=== PATIENT | female | born 2000 | race Caucasian/White ===

== ENCOUNTER 2018-05-26 21:10 | Emergency (ER) | payer OTHER ==
--- NOTE | 2018-05-26 21:35 | ER Document Report ---
ED Hand/Wrist Injury - General Chief Complaint: Finger Injury Stated Complaint: RIGHT THUMB PAIN Time Seen by Provider: 05/26/18 21:25 Mode of Arrival: Ambulatory Information source: Patient Notes: 18-year-old female presented to ED for complaint of pain to her right thumb. She states she thinks she broke it while doing martial arts. She states she landed on her thumb and someone else landed on top of her. The thumb is deformed. Is alert and oriented respirations regular and unlabored speaking in full sentences walk with a even steady gait. TRAVEL OUTSIDE OF THE [place] 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 Lives with: Parents Family History: Reviewed & Not Pertinent Patient has suicidal ideation: No Patient has homicidal ideation: No - Past Medical History Cardiac Medical History: Reports: None Pulmonary Medical History: Reports: None EENT Medical History: Reports: None Neurological Medical History: Reports: None Endocrine Medical History: Reports: None Renal/ Medical History: Reports: None Malignancy Medical History: Reports: None GI Medical History: Reports: None Musculoskeletal Medical History: Reports None Skin Medical History: Reports None Psychiatric Medical History: Reports: None Traumatic Medical History: Reports: None Infectious Medical History: Reports: None Surgical Hx: Negative - Immunizations Immunizations up to date: Yes Hx Diphtheria, Pertussis, Tetanus Vaccination: Yes Review of Systems - Review of Systems Constitutional: No symptoms reported EENT: No symptoms reported Cardiovascular: No symptoms reported Respiratory: No symptoms reported Gastrointestinal: No symptoms reported Genitourinary: No symptoms reported Female Genitourinary: No symptoms reported Musculoskeletal: Other - Broken and deformed right base of the proximal phalanx of the thumb bruised swollen Skin: No symptoms reported Hematologic/Lymphatic: No symptoms reported Neurological/Psychological: No symptoms reported -: Yes All other systems reviewed and negative Physical Exam - Vital signs Vitals: Temp Pulse Resp BP Pulse Ox 98.4 F 91 16 119/73 100 05/26/18 21:16 05/26/18 21:16 05/26/18 21:16 05/26/18 21:16 05/26/18 21:16 Interpretation: Normal - General General appearance: Appears well, Alert - HEENT Head: Normocephalic, Atraumatic Eyes: Normal Pupils: PERRL - Respiratory Respiratory status: No respiratory distress Chest status: Nontender Breath sounds: Normal Chest palpation: Normal - Cardiovascular Rhythm: Regular Heart sounds: Normal auscultation Murmur: No - Abdominal Inspection: Normal Distension: No distension Bowel sounds: Normal Tenderness: Nontender Organomegaly: No organomegaly - Back Back: Normal, Nontender - Extremities General upper extremity: Normal temperature General lower extremity: Normal inspection, Nontender, Normal color, Normal ROM , Normal temperature, Normal weight bearing. No: Rosendo's sign Hand: Tender, Deformity, Ecchymosis, Instability, No evidence of human bite, No evidence of FB, Swelling. No: Abrasion, Dislocation, Laceration, Nail injury - Neurological Neuro grossly intact: Yes Cognition: Normal Orientation: AAOx4 Ioana Coma Scale Eye Opening: Spontaneous Ioana Coma Scale Verbal: Oriented Ioana Coma Scale Motor: Obeys Commands Ioana Coma Scale Total: 15 Speech: Normal Motor strength normal: LUE, RUE, LLE, RLE Sensory: Normal - Psychological Associated symptoms: Normal affect, Normal mood - Skin Skin Temperature: Warm Skin Moisture: Dry Skin Color: Normal Course - Re-evaluation Re-evalutation: 05/26/18 22:34 Chest x-ray with Dr. Jimenez and Dr. Martel. Dr. Martel stated that the patient should come to [facility] for surgery tomorrow around noon. Patient was treated with Percocet then a splint applied to her hand then she was given a Platter dispense pack to take home for her pain. Patient was given instructions for elevation and ice. Patient is to follow-up with orthopedics tomorrow. Patient tolerated procedures well. - Vital Signs Vital signs: Temp Pulse Resp BP Pulse Ox 98.4 F 74 18 105/66 99 05/26/18 22:10 05/26/18 22:10 05/26/18 22:10 05/26/18 22:10 05/26/18 22:10 - Diagnostic Test Radiology reviewed: Image reviewed, Reports reviewed Procedures - Immobilization Right Hand Thumb Immobilizer type: Thumb spica, Sling Performed by: PCT Post-Proc Neuro Vasc Exam: Normal Alignment checked and good: Yes Discharge - Discharge Clinical Impression: Right thumb comminuted fracture Condition: Stable Disposition: HOME, SELF-CARE Additional Instructions: Fractured Thumb There is a fracture in your thumb. There is a comminuted fracture which means the bone is in multiple pieces. The doctor has assessed the seriousness of the fracture and has explained your treatment plan. Because the thumb is mobile and vulnerable to reinjury, this fracture requires greater protection than a finger fracture. Usually, the thumb will be splinted until fracture healing is complete. A cast is sometimes required, although this depends more on the individual patient 's activities than on the nature of the fracture. Your thumb is fractured into multiple pieces and may require surgery to repair the fractures. Call the doctor or return at once if pain or swelling becomes severe, or if the thumb becomes numb. Some degree of bruising is normal with a thumb fracture. Splint Pending Casting Your injury can't be casted until the swelling has subsided. Therefore, a temporary splint has been placed to protect the injury. Full use of an injured area is not possible in a splint. You should follow the doctor's instructions concerning rest, ice, and elevation of the injury. Never do anything which causes pain under the splint. Keep the splint on ALL THE TIME until you return for casting. If there is unexpected severe pain, or numbness, discoloration, or swelling beyond the splint, you should return at once. ICE & ELEVATION: Apply ice packs frequently against the painful area. Many different schedules are recommended, such as "20 minutes on, 20 minutes off" or "one hour ice, two hours rest." If you need to work, you may need to go longer between ice treatments. You should plan to have the area ice packed AT LEAST one- fourth of the time. The ice should be applied over the wrap, tape, or splint, or over a layer of cloth -- not directly against the skin. Some ice bags have a built-in cloth and can be put directly on the skin. Your injured part should be elevated as much as possible over the next 48 hours. Try to keep the injury above the level of the heart. Avoid use of the injured area. Elevation and rest will decrease the swelling. USE OF [id number] IBUPROFEN: Ibuprofen (Advil, Nuprin, Medipren, Motrin IB) is a medication for fever and pain control. In addition, it has anti- inflammatory effects which may be beneficial, especially in the treatment of injuries. It's best to take ibuprofen with food. Persons with ulcer disease or allergy to aspirin should notify their physician of this before taking ibuprofen. Ibuprofen can be given every four to six hours, for a total of four doses daily. Age Pain or fever dose Antiinflammatory dose 6-8 yr 200 mg (1 tab) 200 mg (1 tab) 9-11 yr 200 mg (1 tab) 200-400 mg (1-2 tab) 11-14 yr 200-400 mg (1-2 tab) 400 mg (2 tab) 15-adult 400 mg (2 tab) 600 mg (3 tab) ORAL NARCOTIC MEDICATION: You have been given a prescription for pain control. This medication is a narcotic. It's best taken with food, as nausea can result if taken on an empty stomach. Don't operate machinery or drive within six hours of taking this medication. Do not combine this medicine with alcohol, or with any medication which can cause sedation (such as cold tablets or sleeping pills) unless you get permission from the physician. Narcotics tend to cause constipation. If possible, drink plenty of fluids and eat a diet high in fiber and fruits. Please be aware that prescription narcotics also have the potential for abuse. People become addicted to these medications because of the general sense of wellbeing that they induce. This feeling along with a significant reduction in tension, anxiety, and aggression provides a stimulating seductive quality to these drugs. Once your pain is under control, we encourage you to discard your unused narcotics. FOLLOW-UP CARE: Spoken with Dr. Tahmina barber he stated that you should be at the office at noon tomorrow. Call the office first thing in the morning and let them know that he stated you should be seen at noon fracture. If you have been referred to a physician for follow-up care, call the physician s office for an appointment as you were instructed or within the next two days. If you experience worsening or a significant change in your symptoms, notify the physician immediately or return to the Emergency Department at any time for re-evaluation. Forms: Return to Work Referrals: JESS MARIA MD [Primary Care Provider] - Follow up as needed JAZIEL MARTEL MD [ACTIVE STAFF] - Follow up as needed
[2018-05-26] MEDS ORDERED: OXYCODONE-ACETAMINOPHEN 5-325 MG TABLET PO ONE (21:44)
--- NOTE | 2018-05-26 21:48 | RADIOLOGY REPORT (SQ) ---
3 VIEWS OF THE RIGHT HAND HISTORY: Thumb injury. COMPARISON: None. FINDINGS/IMPRESSION: Mildly displaced and comminuted fracture of the proximal phalanx of the thumb with mild medial angulation. Surrounding soft tissue swelling is seen.
[2018-05-26] MEDS ORDERED: HYDROCODONE/ACETAMINOPHEN 5-325 MG (6 TAB/ER DISP) PO PRN (22:01)
[2018-05-26 22:17] VITALS: BP 105/66
== END 2018-05-26 22:17 | disposition home or self-care (01) ==
LOC: ER 21:10
DX: S62.511A Displaced fracture of proximal phalanx of right thumb, initial encounter for closed fracture (principal); X58.XXXA Exposure to other specified factors, initial encounter
CPT/HCPCS: 99283

== ENCOUNTER 2018-05-29 05:25 | Day surgery (SDC) | payer OTHER ==
[~2018-05-29 05:25] MED LIST: CEFAZOLIN 2 GM/D5W RTU 2 GM/50 ML RTUPB IV PRN
[2018-05-29] MEDS ORDERED: CEFAZOLIN 2 GM/D5W RTU 2 GM/50 ML RTUPB IV ONE (05:32)
[2018-05-29 06:04] LABS: HEMATOCRIT 41.2 % (36.0-47.0); HEMOGLOBIN 14.2 g/dL (12.0-15.5); MEAN CORPUSCULAR HEMOGLOBIN 31.2 pg (27.0-33.4); MEAN CORPUSCULAR HGB CONC 34.4 g/dL (32.0-36.0); MEAN CORPUSCULAR VOLUME 91 fl (80-97); PLATELET COUNT 241 10^3/uL (150-450); RED BLOOD COUNT 4.54 10^6/uL (3.72-5.28); RED CELL DISTRIBUTION WIDTH 12.9 % (11.5-14.0); WHITE BLOOD COUNT 5.1 10^3/uL (4.0-10.5)
[2018-05-29 06:09] LABS: ANION GAP 13 (5-19); BLOOD UREA NITROGEN 6 mg/dL (7-20); CALCIUM 9.5 mg/dL (8.4-10.2); CARBON DIOXIDE 26 mmol/L (22-30); CHLORIDE 105 mmol/L (98-107); GLUCOSE 96 mg/dL (75-110); POTASSIUM 3.7 mmol/L (3.6-5.0); SODIUM 143.7 mmol/L (137-145)
[2018-05-29] MEDS ORDERED: PROPOFOL INJ 200 MG/20 ML VIAL IV ONE (07:06)
[2018-05-29] MEDS ORDERED: ONDANSETRON HCL INJ/PF 4 MG/2 ML SDV ONE (07:06)
[2018-05-29] MEDS ORDERED: DEXAMETHASONE SOD PHOSPHATE INJ 4 MG/1 ML VIAL ONE (07:06)
[2018-05-29] MEDS ORDERED: HYDROMORPHONE HCL INJ/PF 2 MG/ML AMPULE ONE (07:06)
[2018-05-29] MEDS ORDERED: MIDAZOLAM 2 MG/2 ML INJ ONE (07:06)
[2018-05-29] MEDS ORDERED: SCOPOLAMINE HYDROBROMIDE 1.5 MG PATCH.TD72 ONE (07:07)
[2018-05-29] MEDS ORDERED: FENTANYL CITRATE INJ/PF 100 MCG/2 ML AMPUL IV PRN ×3 (07:41)
[2018-05-29] MEDS ORDERED: PROMETHAZINE HCL INJ 25 MG/1 ML VIAL IV PRN (07:41)
[2018-05-29] MEDS ORDERED: MEPERIDINE HCL/PF INJ 25 MG/1 ML DISP.SYRIN IV PRN (07:41)
[2018-05-29] MEDS ORDERED: DIPHENHYDRAMINE HCL 50 MG/ML VIAL IV PRN (07:41)
[2018-05-29] MEDS ORDERED: BUPIVACAINE HCL 0.5 % INJ/PF 30 ML SDV ONE (08:02)
--- NOTE | 2018-05-29 08:21 | Discharge Summary ---
Discharge Summary (SDC) - Discharge Final Diagnosis: r thumb prox phalanx fracture Date of Surgery: 05/29/18 Discharge Date: 05/29/18 Condition: Good Treatment or Instructions: Elevate right upper extremity Prescriptions: Oxycodone HCl/Acetaminophen [Percocet 5-325 mg Tablet] 1 tab PO Q6 PRN #40 tablet PRN Reason: Referrals: CLEOPATRA HANEY MD [Primary Care Provider] - Discharge Diet: As Tolerated, Regular Respiratory Treatments at Home: Deep Breathing/Coughing Discharge Activity: Balance Activity w/Rest, No tub bath Home Care Assistance: None Needed Report the Following to Your Physician Immediately: Shortness of Breath, Fever over 101 Degrees, Drainage-Foul Smelling
--- NOTE | 2018-05-29 08:22 | Operative Report ---
Operative Report DATE OF SURGERY: 05/29/18 PREOPERATIVE DIAGNOSIS: Right thumb right thumb proximal phalanx fracture OPERATION: Open reduction internal fixation right thumb proximal phalanx fracture SURGEON: JAZIEL SHIELDS ANESTHESIA: GA ESTIMATED BLOOD LOSS: Minimal PROCEDURE: Hardware: Present hand system 1.7 mm With the patient supine Afrin table the right upper extremities prepped and draped in sterile fashion. Limb was elevated for exsanguination tourniquet inflated to 250 torr. A longitudinal incision was made over the dorsal radial corner of the proximal phalanx of the right thumb and sharp dissection was carried incision through the periosteum. The periosteum was elevated. The fracture was reduced under direct visualization. A titanium T plate is applied and 3 screws were placed proximally and 3 screws were placed distally. Fracture reduction hardware placement checked fluoroscopically and felt to be adequate. At this point the tourniquet is deflated. Hemostasis obtained with bipolar cautery. Wound is irrigated. Disclosures interrupted 4-0 nylon suture. A sterile compressive dressing was applied and the patient's return to PACU in satisfactory condition.
[2018-05-29] MEDS ORDERED: FENTANYL CITRATE INJ/PF 100 MCG/2 ML AMPUL ONE (08:30)
[2018-05-29 10:33] VITALS: BP 100/60
--- NOTE | 2018-05-29 11:12 | RADIOLOGY REPORT (SQ) ---
EXAM DESCRIPTION: NO CHG FLUORO; FINGER RIGHT COMPLETED DATE/TIME: 05/29/2018 11:00 am REASON FOR STUDY: ORIF RT THUMB ASST WITH FLUORO IN OR COMPARISON: None. FLUOROSCOPY TIME: 25 seconds 2 Images saved to PACS LIMITATIONS: None. PROCEDURE: ORIF right thumb fracture. FINDINGS: 2 images obtained with fluoro document placement of a plate secured by multiple screws. IMPRESSION: ORIF right thumb. Refer to operative note for further information. COMMENT: PQRS 6045F: Fluoroscopy time of the procedure is documented in the report. TECHNICAL DOCUMENTATION: JOB ID: [id number] [email or web address]- All Rights Reserved Reading location - IP/workstation name: [email or web address]
--- NOTE | 2018-05-29 11:12 | RADIOLOGY REPORT (SQ) ---
EXAM DESCRIPTION: NO CHG FLUORO; FINGER RIGHT COMPLETED DATE/TIME: 05/29/2018 11:00 am REASON FOR STUDY: ORIF RT THUMB ASST WITH FLUORO IN OR COMPARISON: None. FLUOROSCOPY TIME: 25 seconds 2 Images saved to PACS LIMITATIONS: None. PROCEDURE: ORIF right thumb fracture. FINDINGS: 2 images obtained with fluoro document placement of a plate secured by multiple screws. IMPRESSION: ORIF right thumb. Refer to operative note for further information. COMMENT: PQRS 6045F: Fluoroscopy time of the procedure is documented in the report. TECHNICAL DOCUMENTATION: JOB ID: [id number] [employer]- All Rights Reserved Reading location - IP/workstation name: [email or web address]
== END 2018-05-29 10:36 | disposition home or self-care (01) ==
LOC: OROUT 05:25
PROVIDERS: ATTEND Orthopaedic Surgery
DX: S62.609A Fracture of unspecified phalanx of unspecified finger, initial encounter for closed fracture (principal); W19.XXXA Unspecified fall, initial encounter; Y93.75 Activity, martial arts; M79.644 Pain in right finger(s); Z79.3 Long term (current) use of hormonal contraceptives
CPT/HCPCS: 36415; 85027; 81025; 80048; 73140; 26735; C1713 ×5; J2250; J3490; J1100; J1170; J2405; J2704; J0690; 01830; J3010